=== PATIENT | male | born 1985 | race Caucasian/White ===

== ENCOUNTER 2020-12-05 09:03 | Emergency (ER) | payer OTHER ==
[~2020-12-05] VITALS: Ht 177.8 cm; Wt 90.7 kg
== END 2020-12-05 12:55 | disposition home or self-care (01) ==
LOC: ER 09:03
DX: S93.491A Sprain of other ligament of right ankle, initial encounter (principal); X50.0XXA Overexertion from strenuous movement or load, initial encounter; Y93.39 Activity, other involving climbing, rappelling and jumping off; Y92.814 Boat as the place of occurrence of the external cause; Y99.8 Other external cause status